=== PATIENT | female | born 1970 | race Native Hawaiian/Other Pacific Islander ===

== ENCOUNTER 2018-09-08 16:01 | Outpatient (CLI) | payer OTHER ==
[2018-09-08 16:49] LABS: PLATELET COUNT 259 K/uL (152-353)
[2018-09-08 17:07] LABS: POTASSIUM 4.3 mmol/L (3.6-5.2)
== END 2018-09-09 05:56 | disposition home or self-care (01) ==
LOC: LAB 16:01
PROVIDERS: Internal Medicine Infectious Disease
DX: M77.51 Other enthesopathy of right foot and ankle (principal); L03.115 Cellulitis of right lower limb
CPT/HCPCS: 80053; 85027; 86140